=== PATIENT | male | born 1995 | race Caucasian/White ===

== ENCOUNTER 2021-09-27 16:29 | Emergency (ER) | payer OTHER ==
[2021-09-27 16:36] VITALS: BP 101/62; PULSE 78; TEMP 98.1; BMI 18.7
[2021-09-27] MEDS ORDERED: chlorproMAZINE HCL 25 MG/1 ML AMP IM ONE (18:47)
[2021-09-27] MEDS ORDERED: MAG HYDROX/AL HYDROX/SIMETH 30 ML UNIT-DOSE CUP PO ONE (18:53)
[2021-09-27] MEDS ORDERED: chlorproMAZINE HCL 25 MG/1 ML AMP ONE (19:09)
[2021-09-27] MEDS ORDERED: MAG HYDROX/AL HYDROX/SIMETH 30 ML UNIT-DOSE CUP ONE (19:09)
== END 2021-09-27 20:57 | disposition home or self-care (01) ==
LOC: JER 16:29
PROC: 3E023GC Introduction of Other Therapeutic Substance into Muscle, Percutaneous Approach (ICD-10-PCS; principal; 2021-09-27)
DX: R06.6 Hiccough (principal)
CPT/HCPCS: 93005; 93010; 99284-25

== ENCOUNTER 2024-12-23 19:45 | Observation (INO) | payer OTHER ==
[2024-12-24 21:13] VITALS: BMI 18.7
[2024-12-25] MEDS ORDERED: ACETAMINOPHEN 1000 MG/100 ML BAG IVPB PRN (02:44)
[2024-12-25] MEDS ORDERED: ACETAMINOPHEN 325 MG TABLET (FP) PO PRN (02:47)
[2024-12-25] MEDS: ACETAMINOPHEN 650 MG/20.3 ML ORAL SOLUTION (CUPS) PO PRN (03:16)
[2024-12-25 08:45] LABS: ABSOLUTE IMMATURE GRANULOCYTES 0.01 x10^3/uL (0.0-0.031); BASOPHILS # 0.03 x10^3/uL (0.01-0.08); EOSINOPHIL % 2.5 % (0.8-7.0); EOSINOPHILS # 0.16 x10^3/uL (0.04-0.54); MCHC 32.6 g/dl (32.3-36.5); MEAN CELL VOLUME 90.0 fl (79.0-92.2); MEAN PLT VOLUME 10.3 fl (9.4-12.4); MONOCYTE # 0.42 x10^3/uL (0.30-0.82); MONOCYTE % 6.5 % (5.3-12.2); RDW 13.9 % (11.9-15.3)
[2024-12-25 09:48] LABS: GLUCOSE,RANDOM 87.0 mg/dL (74-106)
[2024-12-25 09:49] LABS: TOT PROT 7.2 g/dl (6.4-8.2)
[2024-12-25 09:50] LABS: CO2 25.0 mmol/L (21-32)
[2024-12-25 09:51] LABS: ALK PHOS 59.0 U/L (40-150)
[2024-12-25 09:54] LABS: CREATININE 0.73 mg/dL (0.55-1.3)
[2024-12-25 10:28] LABS: SGOT/AST 22.0 U/L (5-34); SGPT/ALT 31.0 U/L (0-55)
[2024-12-25] MEDS: SIMETHICONE 80 MG TAB.CHEW (FP) PO PRN (15:15)
[2024-12-26 11:20] VITALS: BP 97/68; PULSE 73; RESP 18; TEMP 97.9
== END 2024-12-26 11:32 | disposition home or self-care (01) ==
LOC: JER 19:45 → JERBED 12-24 17:34 → J6S 12-24 19:20
PROVIDERS: ADMIT Student in an Organized Health Care Education/Training Program; ATTEND Internal Medicine
DX: R41.82 Altered mental status, unspecified (principal); Q67.6 Pectus excavatum; B88.8 Other specified infestations; F84.0 Autistic disorder; Z60.8 Other problems related to social environment
CPT/HCPCS: 36415; 80053; 83735; 84100; 85025; 93005; 93010; 99285-25; G0378